=== PATIENT | female | born 1955 | race Caucasian/White ===

== ENCOUNTER 2019-08-03 14:22 | Observation (INO) | payer MEDICARE, MEDICAID ==
[2019-08-03] VITALS (7 sets, daily range): BP systolic 96–145; BP diastolic 53–73
[~2019-08-03] VITALS: Ht 152.4 cm; Wt 127.0 kg
[~2019-08-03 14:22] MED LIST: ADVAIR DISK1 IN; ALBUTEROL2.5 MG/3 M IN; AVELOX400 MG OR; DOXYCYC MONO100 M1 OR; EPIPEN 2-PAK0.3 MG IM; GARLIQUE400 MG PO; HOME NEBULIZER; LEVOTHYROXIN50 MCG PO; LISINOP/HCTZ1 TA1 OR; LISINOP/HCTZ1 TAB PO; MEDDOSEPAK OR; METFORMIN500 MG PO; NEOMYCIN/POLYMY1 SUS OU; PRAVASTATIN10 MG PO; PREDNISONE20 MG OR; SYMBICORT1 AE1 IN; TAMOXIFEN XX; TAMOXIFEN10 MG OR; TAMOXIFEN20 MG OR; TUSSIONEX1 ML OR; ULTRAM50 MG OR; VITAMIN D32000 UNIT PO; VITAMIN E400 UNIT PO; ZESTORETIC1 TA1 OR; [UNRECOGNIZED DRUG - REMARK]
--- NOTE | 2019-08-03 14:22 | NUR ---
IMEDIATELY TO ROOM WITH EDP AND RT AT BEDSIDE
--- NOTE | 2019-08-03 14:27 | NUR ---
1427 EPINEPHERINE 0.5CC GIVEN IM LT THIGH 1428 SOLUMEDROL 125MG GIVEN IVP 1431 PEPCID 20MG IVP 1440 EPINEPHERINE 0.3CC GIVEN IM RT THIGH DR BLACKWELL AND RT AT BEDSIDE. PT PROGRESSIVELY GETTING BETTER WITH PHONATION AND STATES SHE FEELS LIKE HER TONGUE IS NOT SWOLLEN ANYMORE
[2019-08-03 14:56] LABS: HEMATOCRIT 39.8 % (37.0-47.0); HEMOGLOBIN 12.8 g/dl (12.0-16.0); IMMATURE GRANULOCYTES 0.4 % (0.0-5.0); MEAN CELL VOLUME 83.4 fL CALC (80.0-100.0); MEAN CORPUSCULAR HGB 26.8 pG CALC (26.0-32.0); MEAN CORPUSCULAR HGB CONC 32.2 g/L CALC (32.0-36.0); NEUT# 4.86 thou/uL (2.00-7.15); RED BLOOD COUNT 4.77 mill/uL (4.20-5.60); RED CELL DISTRI WIDTH 14.4 % (11.5-15.5)
--- NOTE | 2019-08-03 14:58 | NUR ---
REPORT TO PC NURSE SARI RIVAS, XIMENA. CHIDI ORO, RN AT [facility] INITIATE ANOTHER IV
[2019-08-03 15:03] LABS: ANION GAP 14 (6-22 (CALC)); BUN 21 mg/dL (8-23); BUN/CREATININE RATIO 37 (12-20 (CALC)); CARBON DIOXIDE 27 mmol/l (22-30); CHLORIDE 100 mmol/l (95-108); CREATININE 0.6 mg/dL (0.5-1.0); GFR > 60 ML/MIN (>=60 (CALC)); GFR FOR AFR.AMER. > 60 ML/MIN (>=60 (CALC)); POTASSIUM 3.6 mmol/l (3.5-5.1); SODIUM 137 mmol/l (137-146)
--- NOTE | 2019-08-03 15:32 | NUR ---
Received call from ED stating MD is admitting Patient to ICU related to angioedema - all technical document writer has at this time is vitals, labs and Chest X-Ray showing No acute cardiopulmonary process. CM recommendation OBS status at this time
--- NOTE | 2019-08-03 15:51 | NUR ---
PT AWARE OF PENDING ADMISSION
--- NOTE | 2019-08-03 16:40 | NUR ---
PT AWARE OF PEDNING ADMISSION EPI GTT STARTED ORDERED MD AWARE OF USING IV HAND ACCESS
--- NOTE | 2019-08-03 16:59 | NUR ---
VISITOR AT BEDSIDE, TOLERATING EPI GTT WITHOUT INCIDENT.
--- NOTE | 2019-08-03 18:01 | NUR ---
ATTEMPTED TO CALL REPORT, MATEO TO CALL BACK FOR REPORT
--- NOTE | 2019-08-03 18:33 | NUR ---
REPORT CALLED TO MATEO BUENO IN ICU, CHIDI LOVELL AT BEDSIDE FOR STRETCHER TRANSPORT ON TELE
--- NOTE | 2019-08-03 18:39 | NUR ---
PT TRASNPORTED TO ICU VIA STRETCHER ON TELE
--- NOTE | 2019-08-03 18:43 | NUR ---
female pt received to ICU bed 3 via stretcher accompanied by Angela Boykin RN in stable condition; pt ambulatory to chair with weak assisted gait; admission assessment completed at this time; c/c tongue and difficulty swallowing since approx 1300; pt denies new meds/ food/ detergents; pt alert and oriented; denies pain; no n/v/ noted; resp even and unlabored; lungs clear bilat; skin color wnl; ra; hr reg; strong pulses; 1+ edema noted to ble; sr on monitor; abd soft/ obese with bs present; no bm noted per service writer advisor; pt admits to voiding without pain or burning; no urine to inspect at this time; bsc; #20 saline locked to lac; #20 ems site patent to with epi gtt infusing at 1 mcg/min; no redness or edema noted at site; plan of care/ meds/ fall prec explained; call light within reach; will continue to monitor
--- NOTE | 2019-08-03 19:20 | NUR ---
accucheck of 172; glucophage administered; ice chips provided; pt denies difficulty swallowing/ speak; admits to tongue feeling normal; no facial edema/ lip edema noted per flex o writer operator; no rash/hives noted; will continue to monitor
--- NOTE | 2019-08-03 19:29 | NUR ---
family x3 present at bedside
--- NOTE | 2019-08-03 20:20 | NUR ---
awake in chair; offers no complaints; no apparent distress noted; pt offers no complaints; epi gtt continues at 1mcg/min; no redness or edema noted at site; ra; sr on monitor; call light within reach
--- NOTE | 2019-08-03 21:05 | NUR ---
PT. FOUND SITTING UP IN CHAIR AT BEDSIDE IN NO DISTRESS. EPINEPHRINE DRIP DISCONTINUED AT THIS TIME PER DR. [place] VERBAL ORDERS. RESPS EVEN AND UNLABORED. SKIN WARM AND DRY. NO SWELLING OF ORAL CAVITY NOTED AT THIS TIME. CALL LIGHT WITHIN REACH. PT. MOVED ALL EXTREMITIES, ORIENTED X 3. DENIES COMPLAINTS OF PAIN. LOWER EXT EDEMA NOTED, BUT PT. STATES IT IS NO DIFFERENT THAN WHAT SHE NORMALLY HAS. NO RASH NOTED. LAURA. LIN. DENIES SOB OR DIFFICULTY SWALLOWING.
--- NOTE | 2019-08-03 21:06 | NUR ---
report given to Lyssa Archer RN
--- NOTE | 2019-08-03 22:05 | NUR ---
PT. ASSISTED WITH NEW GOWN AND ASSISTED TO BED THIS TIME. DENIES OTHER COMPLAINTS OR NEEDS. LIGHTS DIMMED FOR COMFORT. WILL CONTINUE TO CLOSELY MONITOR.
--- NOTE | 2019-08-03 22:53 | NUR ---
PT. UP TO BSC. RESPS REMAIN EVEN AND UNLABORED. SKIN REMAINS WARM AND DRY. PT. REQUESTING TO STAY SITTING UP IN CHAIR FOR NOW. LIGHTS AGAIN DIMMED FOR COMFORT AND SOCKS APPLIED AT THIS TIME. DENIES OTHER COMPLAINTS OR NEEDS.
[2019-08-04] VITALS: BP 106/54
--- NOTE | 2019-08-04 01:07 | NUR ---
PT. ASSISTED BACK TO BED AT THIS TIME. REMAINS STABLE WITHOUT COMPLAINTS OF FACIAL OR ORAL SWELLING. RESPS REMAINS EVEN AND UNLABORED. WILL CONTINUE TO CLOSELY MONITOR.
[2019-08-04 02:00] VITALS: BP 106/54
--- NOTE | 2019-08-04 03:05 | NUR ---
PT. RESTING ON RT. SIDE IN NO DISTRESS. RESPS REMAIN EVEN AND UNLABORED. SPO2 STABLE ON RA. PT. VOICES NO COMPLAINTS OR NEEDS AT THIS TIME. WILL CONTINUE TO CLOSELY MONITOR
[2019-08-04 04:00] VITALS: BP 113/52
--- NOTE | 2019-08-04 04:20 | NUR ---
LAB AT BEDSIDE AT THIS TIME. PT. THEN ASSISTED TO BSC. APPROX 450 CC OUT AT THIS TIME. PT. UP TO CHAIR AND PLACED BACK ON THE MONITOR. DENIES ORAL SWELLING ONLY STATES WITH A MILD SORE THROAT.
[2019-08-04 04:53] LABS: HEMATOCRIT 39.5 % (37.0-47.0); HEMOGLOBIN 12.6 g/dl (12.0-16.0); MEAN CORPUSCULAR HGB 26.8 pG CALC (26.0-32.0); MEAN CORPUSCULAR HGB CONC 31.9 g/L CALC (32.0-36.0); RED BLOOD COUNT 4.7 mill/uL (4.20-5.60); RED CELL DISTRI WIDTH 14.6 % (11.5-15.5)
[2019-08-04 05:07] LABS: ANION GAP 14 (6-22 (CALC)); BUN 17 mg/dL (8-23); BUN/CREATININE RATIO 32 (12-20 (CALC)); CARBON DIOXIDE 26 mmol/l (22-30); CHLORIDE 103 mmol/l (95-108); CREATININE 0.5 mg/dL (0.5-1.0); GFR > 60 ML/MIN (>=60 (CALC)); GFR FOR AFR.AMER. > 60 ML/MIN (>=60 (CALC)); POTASSIUM 3.7 mmol/l (3.5-5.1); SODIUM 139 mmol/l (137-146)
--- NOTE | 2019-08-04 05:25 | NUR ---
PT. ASSISTED TO CHAIR AT BEDSIDE. DENIES COMPLAINTS OF PAIN OR NEED. SKIN REMAINS WARM AND DRY. WILL CONTINUE TO CLOSELY MONITOR.
[2019-08-04 06:00] VITALS: BP 136/82
--- NOTE | 2019-08-04 07:00 | NUR ---
pt awake in chair; no distress noted; pt offers no complaints; assessment completed at this time; pt alert and oriented; denies pain; no n/v noted; resp even and unlabored; lungs clear; skin color wnl; ra; pt denies difficulty breathing/swallowing; no rash noted; no facial or tongue swelling; hr reg; strong pulses; 1+ edema noted to feet; sb-sr on monitorl abd soft with bs present; no bm noted per typewriter assembly and parts inspector; no urine to inspect at this time; bsc; #20 ems site flushed and patent to lh/ #20 occluded to lac; #20 removed with cath tip intact from lac; plan of care/ am meds explained; call light within reach; will continue to monitor
--- NOTE | 2019-08-04 07:45 | NUR ---
Dr Andujar present at bedside to assess pt and discuss plan of care
[2019-08-04 08:00] VITALS: BP 140/66
[2019-08-04] MEDS ORDERED: MEDDOSEPAK PO (08:01)
[2019-08-04] MEDS ORDERED: BENADRYL 25MG C25 MG PO (08:01)
[2019-08-04] MEDS ORDERED: AMLODIPINE BESYL5 MG PO (08:01)
--- NOTE | 2019-08-04 08:02 | NUR ---
pt awake in chair; offers no complaints; awaiting discharge; iv intact; sr on monitor; pt deny needs/ concerns; call light within reach; will continue to monitor
[2019-08-04 09:00] VITALS: BP 119/64
--- NOTE | 2019-08-04 09:29 | NUR ---
discharge instructions reviewed in detail; pt verbalizes understanding
--- NOTE | 2019-08-04 09:34 | NUR ---
Discharge instructions given. Patient verbalizes understanding of same. Discharged in stable condition via Wheelchair to Home with family. All belongings sent with pt.
--- NOTE | 2019-08-04 10:00 | NUR ---
awake in bed; continues with restlessness; prev medicated with ativan; iv intact; das ilva to gravity draining clear yellow urine; o2 per nc; sr on monitor; pt freq repositions self; call light within reach; will continue to monitor
== END 2019-08-04 09:34 | disposition home or self-care (01) ==
LOC: ED 14:22 → ED-I 15:27 → ED 15:38 → ICU 15:39
PROVIDERS: Family Medicine; ADMIT Internal Medicine; ATTEND Internal Medicine
DX: T78.3XXA Angioneurotic edema, initial encounter (principal); E11.9 Type 2 diabetes mellitus without complications; I10 Essential (primary) hypertension; J44.9 Chronic obstructive pulmonary disease, unspecified; E03.9 Hypothyroidism, unspecified; G47.33 Obstructive sleep apnea (adult) (pediatric); Z79.84 Long term (current) use of oral hypoglycemic drugs; Z88.0 Allergy status to penicillin; Z91.030 Bee allergy status

== ENCOUNTER 2019-12-10 | Emergency (ER) | payer MEDICARE, MEDICAID ==
[~2019-12-10] MED LIST changes: +AMLODIPINE BESYL5 MG PO; +BENADRYL 25MG C25 MG PO; +MEDDOSEPAK PO
[2019-12-10] MEDS ORDERED: GABAPENTIN100 MG PO (17:26)
[2019-12-10] MEDS ORDERED: ACYCLOVIR400 MG PO (17:27)
[2019-12-10] MEDS ORDERED: HYDROCHLOROTH12.5 MG PO (17:27)
== END 2019-12-10 18:45 | disposition home or self-care (01) ==
DX: S00.03XA Contusion of scalp, initial encounter (principal); I10 Essential (primary) hypertension; J44.9 Chronic obstructive pulmonary disease, unspecified; E11.9 Type 2 diabetes mellitus without complications; E03.9 Hypothyroidism, unspecified; W20.8XXA Other cause of strike by thrown, projected or falling object, initial encounter; Y93.89 Activity, other specified; Y92.003 Bedroom of unspecified non-institutional (private) residence as the place of occurrence of the external cause; Z79.84 Long term (current) use of oral hypoglycemic drugs

== ENCOUNTER 2021-03-08 21:37 | Emergency (ER) | payer MEDICARE, MEDICAID ==
[~2021-03-08] VITALS: Ht 152.4 cm; Wt 115.0 kg
[~2021-03-08 21:37] MED LIST changes: +ACYCLOVIR400 MG PO; +GABAPENTIN100 MG PO; +HYDROCHLOROTH12.5 MG PO; +METFORMIN500 M2 PO; -METFORMIN500 MG PO
[2021-03-08] MEDS ORDERED: ADULT ASPIRIN R81 MG PO (22:06)
[2021-03-09 00:28] VITALS: BP 130/76
== END 2021-03-09 00:25 | disposition home or self-care (01) ==
LOC: ED 21:37
DX: S01.01XA Laceration without foreign body of scalp, initial encounter (principal); I10 Essential (primary) hypertension; E11.9 Type 2 diabetes mellitus without complications; J44.9 Chronic obstructive pulmonary disease, unspecified; E03.9 Hypothyroidism, unspecified; G47.30 Sleep apnea, unspecified; F32.9 Major depressive disorder, single episode, unspecified; W01.198A Fall on same level from slipping, tripping and stumbling with subsequent striking against other object, initial encounter; Y92.009 Unspecified place in unspecified non-institutional (private) residence as the place of occurrence of the external cause; Z79.84 Long term (current) use of oral hypoglycemic drugs